=== PATIENT | male | born 1990 | race Caucasian/White ===

== ENCOUNTER 2023-07-09 21:14 | Emergency (ER) | payer OTHER ==
[~2023-07-09] VITALS: Ht 172.7 cm; Wt 88.8 kg
[2023-07-09 21:51] VITALS: BP 143/90; O2SAT 98
[2023-07-09 22:50] LABS: CLARITY URINE CLEAR (CLEAR); COLOR URINE YELLOW (YELLOW); GLUCOSE URINE NEGATIVE (NEGATIVE); KETONES URINE NEGATIVE (NEGATIVE); LEUKOCYTE ESTERASE URINE NEGATIVE (NEGATIVE); NITRITE URINE NEGATIVE (NEGATIVE); OCCULT BLOOD URINE NEGATIVE (NEGATIVE); PROTEIN URINE NEGATIVE (NEGATIVE); SPECIFIC GRAVITY URINE 1.024 (1.005-1.030)
[2023-07-10] MEDS ORDERED: DOXY100C5 MT (00:39)
[2023-07-10] MEDS ORDERED: DOXYCYCLINE HYCLATE 100MG CAPSULE PO ONE (00:45)
[2023-07-10] MEDS ORDERED: CEFTRIAXONE SODIUM 500 MG/VIAL IM ONE (00:45)
[2023-07-10 02:02] VITALS: PULSE 86; RESP 16; TEMP 98.7
== END 2023-07-10 02:07 | disposition home or self-care (01) ==
LOC: ER 21:14 → EDBD 21:14 → ER 07-10 02:07
DX: Z11.3 Encounter for screening for infections with a predominantly sexual mode of transmission (principal)
CPT/HCPCS: 99283; 87491; 87591; 81003; 96372; J0696